=== PATIENT | male | born 2000 | race Caucasian/White ===

== ENCOUNTER 2023-06-06 15:41 | Emergency (ER) | payer OTHER, SELFPAY ==
[2023-06-06 15:44] VITALS: BP 132/72; PULSE 82; RESP 20; TEMP 36.4; O2SAT 98
[2023-06-06] MEDS: HYDROcodone/acetaminophen (*CRX) 5-325 MG TABLET 1 TAB PO (17:48)
[2023-06-06] MEDS: Please add drug allergy info to patient profile. 1 EACH XX (17:48)
--- NOTE | 2023-06-06 17:50 | ED.BURNSMOKE ---
HPI - Burn/Smoke Inhalation General Chief complaint: Burn/Smoke Inhalation Stated complaint: right hand injury Time Seen by Provider: 06/06/23 16:34 Source: patient Mode of arrival: ambulatory Limitations: no limitations History of Present Illness HPI Narrative: Patient is a 22-year-old male who presents to the ED with reported gallego to his right hand. Patient reports he was at work today at [employer] and slipped on water on the ground. He fell forward with his hands outstretched. His right hand hit against the heated grill. He sustained gallego to his third through fifth fingers and to his palm. He denies any numbness or tingling. Denies any other injuries. Denies fevers. Patient has not taken anything for pain prior to arrival. Related Data Allergies Allergy/AdvReac Type Severity Reaction Status Date / Time No Known Allergies Allergy Verified 06/06/23 17:48 Review of Systems Review of Systems: CONSTITUTIONAL: Denies fever, chills, or sweats. SKIN: See HPI. MUSCULOSKELETAL: See HPI. NEUROLOGIC: Denies tingling, numbness, or weakness. All systems reviewed & are unremarkable except as noted in HPI and below Exam Narrative: GENERAL: Well appearing, thin, non-toxic, in no acute distress. HEAD: Normocephalic, atraumatic. NECK: Supple. No adenopathy, no masses. RESPIRATORY: Airway patent, respirations nonlabored. CARDIOVASCULAR: Regular rate and rhythm without murmurs, rubs, or gallops. Radial pulses 2+ and equal bilaterally. ABDOMINAL: Soft, nontender, nondistended, no hepatosplenomegaly. Normoactive BS. MUSCULOSKELETAL: Full range of motion of right hand and fingers. SKIN: Warm, dry, normal color. No rashes. Small superficial partial-thickness gallego to DIP joints of R third, fourth, fifth digits on the extensor surface. No blistering present. Small superficial burn to medial edge of R thumb. 2 larger gallego to the thenar and hypothenar eminences of right palm with some evidence of previous blistering. No large tense blistered. Brisk capillary refill. Blanchable. No deep partial gallego. No muscle involvement. No necrosis or sloughing of skin. NEURO: A&O X3. Speech clear. Cranial nerves II-XII grossly intact. Steady gait. No ataxic movements. PSYCHIATRIC: Appropriate mood and affect. Normal interaction. Course Vital Signs Vital signs: Vital Signs Temperature 97.6 F 06/06/23 15:44 Pulse Rate 82 06/06/23 15:44 Respiratory Rate 20 06/06/23 15:44 Blood Pressure 132/72 06/06/23 15:44 Pulse Oximetry 98 06/06/23 15:44 Oxygen Delivery Room Air 06/06/23 15:44 Temperature 97.6 F 06/06/23 15:44 Pulse Rate 82 06/06/23 15:44 Respiratory Rate 20 06/06/23 15:44 Blood Pressure 132/72 06/06/23 15:44 Pulse Oximetry 98 06/06/23 15:44 Oxygen Delivery Room Air 06/06/23 15:44 MDM - Burn/Smoke Inhalation MDM Narrative Medical decision making narrative: Patient presented to ED with gallego to his right hand. Mostly superficial partial-thickness gallego. No deep partial or full-thickness gallego. No significant blistering present at this time. No circumferential gallego. Patient with full range of motion of fingers. Pain under control. Vitals stable. Afebrile. Gallego were cleaned and bandaged by myself using Xeroform gauze, Kerlix, Coban. Discussed management of gallego, importance of close follow-up, strict return precautions. Recommended follow-up within the next 1 week for further evaluation and to ensure improvement of wounds. Patient agrees with plan. He believes his tetanus is up-to-date within the last 7 years. Patient discharged in stable condition. Bacitracin and a few pain pills sent to pharmacy. Medical Records Attestation: I reviewed the patient's medical records. Lab Data Attestation: I reviewed the patient's lab results. Discharge Plan Discharge Clinical Impression: Superficial partial thickness burn of hand Superficial burn of right hand including fingers Gabriel
== END 2023-06-06 18:21 | disposition home or self-care (01) ==
PROVIDERS: Emergency Provider Physician Assistant; PCP Family Medicine
DX: T23.251A Burn of second degree of right palm, initial encounter (principal); T23.241A Burn of second degree of multiple right fingers (nail), including thumb, initial encounter; T31.0 Burns involving less than 10% of body surface; W01.0XXA Fall on same level from slipping, tripping and stumbling without subsequent striking against object, initial encounter; X19.XXXA Contact with other heat and hot substances, initial encounter
CPT/HCPCS: 99283; A9270

== ENCOUNTER 2023-12-09 00:20 | Emergency (ER) | payer OTHER, SELFPAY ==
[2023-12-09 00:28] VITALS: BP 117/65; PULSE 67; RESP 16; TEMP 36.2; O2SAT 100
[2023-12-09 01:04] VITALS: BP 109/68; PULSE 65; RESP 15; TEMP 36.6; O2SAT 100
--- NOTE | 2023-12-09 01:50 | ED.ALLEREA ---
HPI - Allergic Reaction General Chief complaint: Allergic Reaction Stated complaint: allergic reaction Time Seen by Provider: 12/09/23 01:06 Source: patient Mode of arrival: ambulatory Limitations: no limitations History of Present Illness HPI narrative: Patient is a 23-year-old male who presents the ED with report of allergic reaction. Patient reports he was playing video games around 9:00 p.m. when he began noticing a rash to his bilateral forearms. Rash was red and itchy. He also began having hive-like rash to his back and mild swelling/redness/itching to his left periorbital region. Patient denies known allergens. Significant other at bedside does report they recently used a new fabric softener. Denies any other new lotions, soaps, medications, foods. Patient took Benadryl prior to arrival without significant improvement. He denies any difficulty breathing or swelling. Denies swelling or numbness of lips, tongue/throat, denies nausea or vomiting, fevers, chest pain, changes in his voice. Has never had anaphylaxis in the past. Related Data Allergies Allergy/AdvReac Type Severity Reaction Status Date / Time No Known Allergies Allergy Verified 06/06/23 17:48 Review of Systems Review of Systems: CONSTITUTIONAL: Denies fever, chills, or sweats. ENT: See HPI. CARDIOVASCULAR: Denies chest pain. RESPIRATORY: Denies dyspnea. GASTROINTESTINAL: Denies abdominal pain, nausea, vomiting SKIN: See HPI NEUROLOGIC: Denies headache, dizziness, numbness, or weakness. All systems reviewed & are unremarkable except as noted in HPI and below Exam Narrative: GENERAL: Well appearing, thin, non-toxic, in no acute distress. HEAD: Normocephalic, atraumatic. EYES: PERRL/EOMI, conjunctiva clear. Mild erythema and swelling to left inferior periorbital region. No significant swelling of eyelids. No pain with extraocular movements. Mucous membranes are moist. Posterior pharynx is patent, no tonsillar hypertrophy or exudate. Uvula is nonedematous and midline. No stridor or since. RESPIRATORY: Airway patent, respirations nonlabored. Clear to auscultation bilaterally, no rales, rhonchi, wheezing. No stridor or distress. CARDIOVASCULAR: Regular rate and rhythm without murmurs, rubs, or gallops. MUSCULOSKELETAL: Moves all extremities. No gross deformities. SKIN: Warm, dry, normal color. Erythematous maculopapular rash to the bilateral distal ventral forearms. Scattered urticarial lesions to back. No vesicles, blisters, necrosis, skin sloughing. NEURO: A&O X3. Speech clear. No ataxic movements. PSYCHIATRIC: Appropriate mood and affect. Normal interaction. Course Vital Signs Vital signs: Vital Signs Temperature 97.2 F L 12/09/23 00:28 Pulse Rate 67 12/09/23 00:28 Respiratory Rate 16 12/09/23 00:28 Blood Pressure 117/65 12/09/23 00:28 Pulse Oximetry 100 12/09/23 00:28 Oxygen Delivery Room Air 12/09/23 00:28 Temperature 97.8 F 12/09/23 01:04 Pulse Rate 65 12/09/23 01:04 Respiratory Rate 15 12/09/23 01:04 Blood Pressure 109/68 12/09/23 01:04 Pulse Oximetry 100 12/09/23 01:04 Oxygen Delivery Room Air 12/09/23 01:04 MDM - Allergic Reaction MDM Narrative Medical decision making narrative: Patient presented to ED with allergic reaction, possibly from new fabric softener. Vitals are stable upon arrival. No evidence of airway compromise or respiratory distress. No evidence of anaphylaxis. Patient given Solu-Medrol, Pepcid, Benadryl in the ED with improvement of symptoms. Will be discharged on Medrol Dosepak, advised to continue Benadryl Pepcid as needed for rash/itching. Given strict return precautions. Discussed signs and symptoms of anaphylaxis. Patient voiced understanding. Recommended follow-up with PCP for further evaluation. Discharged in stable condition. Medical Records Attestation: I reviewed the patient's medical records. Discharge Plan Discharge Clinical Impression: Urti
[2023-12-09] MEDS: FAMOTIDINE 20 MG TABLET PO (01:59)
[2023-12-09] MEDS: methylPREDNISolone SOD SUCC 125 MG VIAL IM (01:59)
[2023-12-09] MEDS: diphenhydrAMINE HCl CAP 25 MG CAPSULE PO (01:59)
[2023-12-09 02:42] VITALS: BP 106/67; PULSE 60; RESP 12; O2SAT 100
== END 2023-12-09 02:45 | disposition home or self-care (01) ==
PROVIDERS: Emergency Provider Physician Assistant; PCP Family Medicine
DX: T78.40XA Allergy, unspecified, initial encounter (principal); L50.0 Allergic urticaria; X58.XXXA Exposure to other specified factors, initial encounter
CPT/HCPCS: 96372; 99283; A9270; J2930

== ENCOUNTER 2024-07-18 01:06 | Emergency (ER) | payer OTHER, SELFPAY ==
[2024-07-18 01:09] VITALS: BP 123/74; PULSE 63; RESP 19; TEMP 36.5; O2SAT 100
[2024-07-18 03:05] VITALS: O2SAT 99
[2024-07-18] MEDS: methylPREDNISolone SOD SUCC 125 MG VIAL IV PUSH (03:44)
[2024-07-18] MEDS: FAMOTIDINE 20 MG/2 ML VIAL IV PUSH (03:44)
[2024-07-18] MEDS: diphenhydrAMINE HCl INJ 50 MG/ML VIAL IV PUSH (03:44)
[2024-07-18 05:11] VITALS: BP 117/80; PULSE 60; RESP 18; O2SAT 99
--- NOTE | 2024-07-18 05:29 | ED.ALLEREA ---
HPI - Allergic Reaction General Chief complaint: Allergic Reaction Stated complaint: allergic reaction hives on abd Time Seen by Provider: 07/18/24 02:56 History of Present Illness HPI narrative: Patient is a 23-year-old male who presents emergency department this evening complaining of an allergic reaction. Patient states that he has been having these issues for a long time and finally started to see a dance instructor in October of this year. Patient states that they are in the process of trying to figure out what is precipitating his allergies but states that he has not had any allergy testing it. Allergies seemed to be environmental in nature as patient has not been able to pinpoint a particular food that is causing his hives. Patient states that with reaction usually involves an itchy rash and sometimes mild swelling of his lips but denies any shortness of breath or sensation that his throat is swelling. He is currently difficulty breathing. No additional symptoms or concerns at this time. Related Data Allergies Allergy/AdvReac Type Severity Reaction Status Date / Time No Known Allergies Allergy Verified 07/18/24 01:07 Review of Systems Review of Systems: All systems are reviewed and are negative unless stated otherwise in the HPI. Exam Narrative: General: Alert, awake, afebrile, in no acute distress. HEENT: PERRL, no rhinorrhea, no post nasal drip, oropharynx clear. Cardiovascular: Regular rate and rhythm, no murmurs, rubs or gallops, no peripheral edema. Respiratory: Clear to auscultation bilaterally, no tachypnea, no wheezing, no rhonchi, no rubs, no respiratory distress. Abdomen: Soft, nontender, nondistended, no rebound, no guarding, no peritoneal signs. Musculoskeletal: No joint swelling or deformity, normal muscle tone. Skin: Diffuse urticarial rash involving the bilateral upper and lower extremity and abdomen region. Neurological: Alert and oriented to person, place, and time. Follows all commands. No focal deficits, speech is clear and fluent. Course Vital Signs Vital signs: Vital Signs Temperature 97.7 F 07/18/24 01:09 Pulse Rate 63 07/18/24 01:09 Respiratory Rate 19 07/18/24 01:09 Blood Pressure 123/74 07/18/24 01:09 Pulse Oximetry 100 07/18/24 01:09 Oxygen Delivery Room Air 07/18/24 01:09 Temperature 97.7 F 07/18/24 01:09 Pulse Rate 60 07/18/24 05:11 Respiratory Rate 18 07/18/24 05:11 Blood Pressure 117/80 07/18/24 05:11 Pulse Oximetry 99 07/18/24 05:11 Oxygen Delivery Room Air 07/18/24 03:05 MDM - Allergic Reaction MDM Narrative Medical decision making narrative: The patient was evaluated by myself in the emergency department. History is obtained from patient who is an independent historian and physical exam was performed. External medical records were reviewed at this time. IV was established and pertinent tests were ordered. Patient was administered 125 mg IV Solu-Medrol, 50 mg of IV Benadryl and 20 mg of IV Pepcid. Differential diagnosis considerations include allergic reaction, contact dermatitis, cellulitis. Comorbidities impacting this visit include history recurrent allergic reaction of unknown origin. I have evaluated and discussed social determinants of health with the patient that could potentially impact subsequent diagnosis and treatment plans. On repeat assessment of the patient, reevaluation revealed that the patient is doing well and is in no acute distress. Patient symptoms have improved since he arrived to our emergency department with complete resolution of his rash. Repeat vital signs were all reviewed and noted to be stable. Differential diagnosis and treatment plan were discussed with the patient at bedside. Patient agrees with discussion and after shared medical decision making agrees with discharge. All questions were answered to the patient's satisfaction. Patient will follow up with the unit aid and digital marketing specialist he
== END 2024-07-18 05:46 | disposition home or self-care (01) ==
PROVIDERS: Emergency Provider Emergency Medicine
DX: T78.40XA Allergy, unspecified, initial encounter (principal); X58.XXXA Exposure to other specified factors, initial encounter
CPT/HCPCS: 96374; 96375; 99284; J1200; J2919